=== PATIENT | female | born 1970 | race Caucasian/White ===

== ENCOUNTER 2018-12-19 09:32 | Day surgery (SDC) | payer MEDICAID ==
[2018-12-12 11:02] LABS: ABSOLUTE EOSINOPHILS # (AUTO) 0.1 10^3/uL (0.0-0.6); ABSOLUTE LYMPHOCYTES (AUTO) 1.2 10^3/uL (0.5-4.7); ABSOLUTE MONOCYTES (AUTO) 0.4 10^3/uL (0.1-1.4); ABSOLUTE NEUT (AUTO) 3.2 10^3/uL (1.7-8.2); BASOPHILS % (AUTO) 0.8 % (0-2); HEMOGLOBIN 13.3 g/dL (12.0-15.5); LYMPHOCYTES % (AUTO) 23.9 % (13-45); MEAN CORPUSCULAR HEMOGLOBIN 29.9 pg (27.0-33.4); MEAN CORPUSCULAR HGB CONC 34.1 g/dL (32.0-36.0); MEAN CORPUSCULAR VOLUME 88 fl (80-97); MONOCYTES % (AUTO) 7.4 % (3-13); PLATELET COUNT 231 10^3/uL (150-450); RED BLOOD COUNT 4.44 10^6/uL (3.72-5.28); RED CELL DISTRIBUTION WIDTH 13.9 % (11.5-14.0); SEGMENTED NEUTROPHILS % (AUTO) 64.9 % (42-78); TOTAL CELLS COUNTED % (AUTO) 100 %; WHITE BLOOD COUNT 4.9 10^3/uL (4.0-10.5)
[2018-12-12 11:33] LABS: ANION GAP 10 (5-19); BLOOD UREA NITROGEN 20 mg/dL (7-20); CALCIUM 9.8 mg/dL (8.4-10.2); CARBON DIOXIDE 31 mmol/L (22-30); CHLORIDE 100 mmol/L (98-107); GLUCOSE 84 mg/dL (75-110); POTASSIUM 4.8 mmol/L (3.6-5.0); SODIUM 141.4 mmol/L (137-145)
--- NOTE | 2018-12-12 19:45 | EKG REPORT ---
SEVERITY:- ABNORMAL ECG - SINUS RHYTHM NONSPECIFIC T ABNORMALITIES, ANT-LAT LEADS : Confirmed by: Mariel Wagoner MD 12-Dec-2018 19:44:22
[~2018-12-19 09:32] MED LIST: LACTATED RINGERS 1000 ML IV PRN; LIDOCAINE 0.5% INJ-PF (5 MG/ML) 50 ML SDV SUBCUT PRN
[2018-12-19] MEDS ORDERED: LIDOCAINE 2%/EPINEPHRINE INJ 1.7 ML CARTRIDGE ONE (10:32)
[2018-12-19] MEDS ORDERED: BUPIVACAINE HCL 0.5%/EPI 1:200000 INJ 1.8 ML CARTRIDGE ONE (10:33)
[2018-12-19 10:38] LABS: PARTIAL THROMBOPLASTIN TIME 34.9 SEC (23.5-35.8); PROTHROMBIN TIME 16.8 SEC (11.4-15.4)
[2018-12-19] MEDS ORDERED: MIDAZOLAM 2 MG/2 ML INJ ONE (11:07)
[2018-12-19] MEDS ORDERED: FENTANYL CITRATE INJ/PF 100 MCG/2 ML AMPUL ONE (11:07)
[2018-12-19] MEDS ORDERED: DEXAMETHASONE SOD PHOSPHATE INJ 4 MG/1 ML VIAL ONE (11:07)
[2018-12-19] MEDS ORDERED: ONDANSETRON HCL INJ/PF 4 MG/2 ML SDV ONE (11:07)
[2018-12-19] MEDS ORDERED: PROPOFOL INJ 200 MG/20 ML VIAL IV ONE (11:07)
[2018-12-19] MEDS ORDERED: PROMETHAZINE HCL INJ 25 MG/1 ML VIAL IV PRN ×2 (12:25)
[2018-12-19] MEDS ORDERED: FENTANYL CITRATE INJ/PF 100 MCG/2 ML AMPUL IV PRN ×3 (12:25)
[2018-12-19] MEDS ORDERED: DIPHENHYDRAMINE HCL 50 MG/ML VIAL IV PRN (12:25)
[2018-12-19] MEDS ORDERED: MEPERIDINE HCL/PF INJ 25 MG/1 ML DISP.SYRIN IV PRN (12:25)
[2018-12-19] MEDS ORDERED: ONDANSETRON HCL INJ/PF 4 MG/2 ML SDV IV PRN (12:25)
--- NOTE | 2018-12-19 14:06 | Operative Report ---
Operative Report DATE OF SURGERY: 12/19/18 PREOPERATIVE DIAGNOSIS: Dental caries POSTOPERATIVE DIAGNOSIS: Same OPERATION: Surgical removal of teeth numbers 7, 8, 9, 10, 18 and 28 SURGEON: ALISSON AGOSTO ANESTHESIA: GA TISSUE REMOVED OR ALTERED: Teeth which were discarded COMPLICATIONS: None ESTIMATED BLOOD LOSS: Minimal INTRAOPERATIVE FINDINGS: Grossly decayed and nonrestorable teeth PROCEDURE: The patient was brought into operating room #4 and placed on the operating room table in supine position. General anesthesia was induced via a peripheral IV and continued utilizing endotracheal intubation. The patient was then prepped and draped in the usual fashion for an intraoral procedure. A total of 3 carpules of 2% Lidocaine with 1:100K Epi and 2 carpules of 0.5% Marcaine with 1:200K Epi were delivered to the planned surgical sites via both infiltration and nerve block. The oral cavity and oropharynx were suctioned and a moistened oropharyngeal throat pack was placed. A bite block was used throughout the procedure. Full thickness mucoperisteal flaps were elevated. Ostectomy was comp leted as needed. Teeth were sectioned as needed. Teeth were delivered with elevators and forceps. All sites debrided and irrigated. No sinus exposure noted. Mandible intact post op. BRENNAN not visualized. Wounds reapproximated and sutured with 4-0 chromic gut. The oral cavity was suctioned and found to be free of debris. The throat pack was removed. The oropharynx was suctioned. Gauze packs were placed bilaterally to aid in continued hemastasis. The patient was awakened from general anesthesia, extubated in the operating room and taken to recovery in spontaneous breathing fashion.
[2018-12-19] MEDS ORDERED: SUCCINYLCHOLINE CHLORIDE INJ 200 MG/10 ML VIAL ONE (14:34)
[2018-12-19 14:51] VITALS: BP 104/67
== END 2018-12-19 14:48 | disposition home or self-care (01) ==
LOC: OROUT 09:32 → EDBD 12:00 → OROUT 14:48
PROVIDERS: ATTEND Dentist Oral and Maxillofacial Surgery
DX: K02.9 Dental caries, unspecified (principal); I10 Essential (primary) hypertension; G40.909 Epilepsy, unspecified, not intractable, without status epilepticus; M32.9 Systemic lupus erythematosus, unspecified; E09.9 Drug or chemical induced diabetes mellitus without complications; E78.5 Hyperlipidemia, unspecified; D68.9 Coagulation defect, unspecified; Z87.891 Personal history of nicotine dependence; Z86.73 Personal history of transient ischemic attack (TIA), and cerebral infarction without residual deficits; Z86.711 Personal history of pulmonary embolism; Z79.01 Long term (current) use of anticoagulants
CPT/HCPCS: 41899; 93005; 36415 ×2; 82962; 84132; 85025; 85610; 85730; 80048; 93010; J2250; J3490 ×2; J1100; J3010; J0330; J2405; J2704; 170

== ENCOUNTER → 2020-04-23 | Outpatient (CLI) | payer OTHER, MEDICAID ==
--- NOTE | 2020-04-23 15:36 | RADIOLOGY REPORT (SQ) ---
EXAM DESCRIPTION: CERV SP 3 VIEW OR LESS IMAGES COMPLETED DATE/TIME: 04/23/2020 2:51 pm REASON FOR STUDY: SEIZURES,STROKES,DIABETES,LUPUS,HIGH BLOOD PRESSURE, BACK PAIN,GERD, COMPARISON: None. NUMBER OF VIEWS: Three views. TECHNIQUE: AP, lateral and odontoid radiographic images acquired of the cervical spine. LIMITATIONS: None. FINDINGS: MINERALIZATION: Normal. ALIGNMENT: Anatomic. VERTEBRAE: Vertebral bodies of normal height. DISCS: No significant disc space narrowing. No large osteophytes. HARDWARE: None in the spine. SOFT TISSUES: No masses or calcifications. Lung apices clear. OTHER: No other significant finding. IMPRESSION: NO SIGNIFICANT RADIOGRAPHIC FINDING IN THE CERVICAL SPINE. TECHNICAL DOCUMENTATION: JOB ID: [id number] 2010 [employer]- All Rights Reserved Reading location - IP/workstation name: [email or web address]
--- NOTE | 2020-04-23 15:37 | RADIOLOGY REPORT (SQ) ---
EXAM DESCRIPTION: L SPINE 2 VIEWS IMAGES COMPLETED DATE/TIME: 04/23/2020 2:51 pm REASON FOR STUDY: SEIZURES,STROKES,DIABETES,LUPUS,HIGH BLOOD PRESSURE, BACK PAIN,GERD, COMPARISON: None. NUMBER OF VIEWS: Two views. TECHNIQUE: AP and lateral radiographic images acquired of the lumbar spine. LIMITATIONS: None. FINDINGS: MINERALIZATION: Normal. SEGMENTATION: Normal. No transitional anatomy. ALIGNMENT: Normal. VERTEBRAE: Maintained height. No fracture or worrisome bone lesion. DISCS: There is mild narrowing of the L5-S1 disc. POSTERIOR ELEMENTS: Hypertrophic facet changes at L5-S1. HARDWARE: None in the spine. A vena cava filter is present. PARASPINAL SOFT TISSUES: Normal. PELVIS: Intact as visualized. No fractures or worrisome bone lesions. SI joints intact. OTHER: No other significant finding. IMPRESSION: Degenerative disc disease. Facet arthropathy. TECHNICAL DOCUMENTATION: JOB ID: [id number] 2010 [employer]- All Rights Reserved Reading location - IP/workstation name: [email or web address]
== END ==
LOC: RAD 14:18
DX: M51.36 Other intervertebral disc degeneration, lumbar region (principal); M47.817 Spondylosis without myelopathy or radiculopathy, lumbosacral region; M54.9 Dorsalgia, unspecified; R56.9 Unspecified convulsions; I10 Essential (primary) hypertension; E11.9 Type 2 diabetes mellitus without complications; K58.9 Irritable bowel syndrome, unspecified; K21.9 Gastro-esophageal reflux disease without esophagitis; F41.9 Anxiety disorder, unspecified
CPT/HCPCS: 72040; 72100